=== PATIENT | female | born 1980 | race American Indian/Alaskan Native ===

== ENCOUNTER 2017-10-09 06:12 | Day surgery (SDC) | payer OTHER ==
[2017-10-02 09:37] VITALS: BMI 26.2
[2017-10-09 07:10] VITALS: O2SAT 100
[2017-10-09] MEDS ORDERED: Bupivacaine HCl 0.5% PF (10 ml) Inj ONE (07:30)
[2017-10-09] MEDS ORDERED: Lidocaine 1% Inj (20ml) ONE (07:30)
[2017-10-09] MEDS ORDERED: Lidocaine Hydrochloride 5 ML INJ ONE (07:51)
[2017-10-09] MEDS ORDERED: Propofol 10 mg/ml Inj (20 ML) ONE (07:51)
[2017-10-09] MEDS ORDERED: Midazolam 2 MG/2 ML VIAL ONE (07:51)
[2017-10-09] MEDS ORDERED: Clindamycin 600mg/50ml NS 600 MG/50 ML BAG IVPB ONE (08:00)
--- NOTE | 2017-10-09 08:55 | PCM.SURG1 ---
Surgeon's Initial Post Op Note - Surgeon's Notes Surgeon: Dr. Harrington DPM Limnology Teacher: Dr. Trupti Triana DPAndrea PGY-1 Type of Anesthesia: IV Sedation, Local Anesthesia Administered By: Dr. Rubens NARVAEZ Pre-Operative Diagnosis: Left foot 2nd digit hammer toe Operative Findings: See dictation. M: 4-0 Chromic gut, 3-0 nylon. I: 10 cc of 1:1 mixture of 1% lidocain plain:0.5% marcain plain Post-Operative Diagnosis: Same Operation Performed: Left foot 2nd digit arthroplasty Specimen/Specimens Removed: Left foot 2nd digit bone Estimated Blood Loss: EBL {In ML}: 5 Blood Products Given: N/A Drains Used: No Drains Date of Surgery/Procedure: 10/09/17 Time of Surgery/Procedure: 08:55
[2017-10-09] MEDS ORDERED: Lactated Ringer's 1,000 ML IV SCH (09:00)
--- NOTE | 2017-10-09 09:59 | RAD ---
PROCEDURE: Left Foot Radiographs. HISTORY: s/p left foot 2nd digit surgery COMPARISON: None. FINDINGS: BONES: Status post osteotomy distal aspect 2nd proximal phalanx. Surgical pin traverses the 2nd digit. JOINTS: Normal. SOFT TISSUES: Normal. OTHER FINDINGS: None. IMPRESSION: Osteotomy distal aspect 2nd proximal phalanx.
[2017-10-09] MEDS ORDERED: Oxycodone/Acetaminophen 5/325 mg Tab PO PRN ×2 (10:49)
[2017-10-09 10:53] VITALS: RESP 16
[2017-10-09 12:55] VITALS: BP 101/65; PULSE 68; TEMP 97.6
== END 2017-10-09 12:36 | disposition home or self-care (01) ==
LOC: C.SDS 06:12
PROVIDERS: ATTEND Podiatrist Foot Surgery
DX: M20.42 Other hammer toe(s) (acquired), left foot (principal)
CPT/HCPCS: 28285; 73620; 88304; C1713; J1170; J2250; J2704; J3010

== ENCOUNTER 2017-12-01 09:45 | Day surgery (SDC) | payer OTHER ==
[2017-10-02 09:37] VITALS: BMI 26.2
[2017-12-01 11:05] VITALS: TEMP 98; O2SAT 100
[2017-12-01] MEDS ORDERED: Propofol 10 mg/ml Inj (20 ML) ONE (12:21)
--- NOTE | 2017-12-01 12:24 | CP.SDSHP ---
Same Day Surgery H & P - History Proposed Procedure: COLONSCOPY Pre-Op Diagnosis: SEE NOTES - Previous Medical/Surgical History Misc: Other Pain: 4.Moderate Pain - Allergies Allergies: Allergies SEASONAL Allergy (Uncoded 12/01/17 10:48) CONGESTION - Physical Exam General Appearance: N Vital Signs: Vital Signs 12/01/17 10:30 Temperature 98 F Pulse Rate 85 Respiratory 20 Rate Blood Pressure 104/71 O2 Sat by Pulse 100 Oximetry Mental Status: Alert & Oriented x3 Neuro: WNL Heart: WNL Lungs: WNL GI: Other - {Optional Preform as Required} Breast: WNL Abdomen: WNL Rectal: Other Integument: WNL : WNL Ortho: WNL ENT: WNL - Impression Pt. Evaluated Today:Candidate for Anesthesia & Procedure: Yes - Date & Time Time: 12:23 Short Stay Discharge - Short Stay Discharge Admitting Diagnosis/Reason for Visit: ENCOUNTER FOR SCREENING FOR MALIGNANT NEOPLASM OF Disposition: HOME/ ROUTINE
[2017-12-01] MEDS ORDERED: Belladonna-Phenobarbital PO STA (12:25)
[2017-12-01 13:58] VITALS: RESP 12
[2017-12-01 14:05] VITALS: BP 101/52; PULSE 78
== END 2017-12-01 13:45 | disposition home or self-care (01) ==
LOC: C.ENDO 09:45
PROVIDERS: ATTEND Specialist
DX: Z12.11 Encounter for screening for malignant neoplasm of colon (principal); K58.9 Irritable bowel syndrome, unspecified; K64.8 Other hemorrhoids
CPT/HCPCS: 45380; 84703; 88305; J2704; J3010

== ENCOUNTER 2018-03-11 17:05 | Emergency (ER) | payer OTHER ==
[2018-03-11 17:43] VITALS: BMI 27.4
[2018-03-11 19:10] VITALS: RESP 16; O2SAT 99
[2018-03-11] MEDS ORDERED: Lactated Ringer's 1,000 ML IV STA (19:50)
--- NOTE | 2018-03-11 19:50 | C.PDOC ---
History Of Present Illness Patient is a 37 y/o female who presents to the ED with complaints of headache, body aches, and mild chills since Thursday. Patient notes symptoms have progressively worsened. Admits to mild photophobia and to taking Motrin and Tylenol without relief. Denies any travel. No other physical complaints. Time Seen by Provider: 03/11/18 17:59 Chief Complaint (Nursing): Headache History Per: Patient History/Exam Limitations: no limitations Onset/Duration Of Symptoms: Days (Friday 03/09), Worse Since Current Symptoms Are (Timing): Still Present Severity: Moderate Pain Scale Rating Of: 4 Preceeding Symptoms: None Associated Symptoms: Photophobia (mild) Recent travel outside of the [place]: No Past Medical History Reviewed: Historical Data, Nursing Documentation, Vital Signs Vital Signs: Last Vital Signs Temp 99 F 03/11/18 21:18 Pulse 94 H 03/11/18 20:44 Resp 16 03/11/18 20:44 BP 108/59 L 03/11/18 20:44 Pulse Ox 99 03/11/18 20:44 - Medical History PMH: Anemia, Fractures (FOOT), Gall Bladder Disease Denies: Chronic Kidney Disease Surgical History: Cholecystectomy, Endoscopy - [facility] Procedures INJECT/INFUSE NEC (01/28/15) Family History: States: No Known Family Hx - Social History Hx Tobacco Use: No Hx Alcohol Use: Yes Hx Substance Use: No - Immunization History Hx Tetanus Toxoid Vaccination: No Hx Influenza Vaccination: No Hx Pneumococcal Vaccination: No Review Of Systems Constitutional: Positive for: Chills (mild). Negative for: Fever Eyes: Positive for: Other (mild photophobia) Musculoskeletal: Positive for: Other (generalized body aches) Neurological: Positive for: Headache Physical Exam - Physical Exam Appears: Non-toxic, No Acute Distress Skin: Warm, Dry Head: Normacephalic Eye(s): bilateral: Normal Inspection, Photophobia (mild) Oral Mucosa: Moist Neck: Trachea Midline, Supple Chest: Symmetrical Cardiovascular: Rhythm Regular Respiratory: No Rales, No Rhonchi, No Wheezing Gastrointestinal/Abdominal: Soft, No Tenderness Back: Normal Inspection Extremity: Normal ROM (x4) Extremity: Bilateral: Atraumatic Neurological/Psych: Oriented x3, Other (no focal deficits) Gait: Steady ED Course And Treatment - Laboratory Results Result Diagrams: 03/11/18 20:12 03/11/18 20:12 O2 Sat by Pulse Oximetry: 99 Pulse Ox Interpretation: Normal Progress Note: Blood work, Head CT, UCG urine, UA ordered. Tylenol, zofran, IV fluids administered. Reevaluation Time: 22:07 Reassessment Condition: Improved Disposition Counseled Patient/Family Regarding: Studies Performed, Diagnosis, Need For Followup, Rx Given - Disposition Referrals: Jaleesa Smalls MD [Staff Provider] - Disposition: HOME/ ROUTINE Disposition Time: 19:49 Condition: FAIR Additional Instructions: Please return if symptoms recur Prescriptions: Ondansetron ODT [Zofran ODT] 1 odt PO BID PRN #6 odt PRN Reason: Nausea/Vomiting Instructions: Migraine Headache (DC), Anemia Caused by Low Iron, Adult (DC), Chronic Sinusitis, Urinary Tract Infection, Adult (DC) Forms: [employer] (Pashto) - Clinical Impression Clinical Impression: Headache, Anemia, Chronic sinusitis, UTI (urinary tract infection) - Scribe Statement The provider has reviewed the documentation as recorded by the Scribe Renae Seo All medical record entries made by the Scribe were at my direction and personally dictated by me. I have reviewed the chart and agree that the record accurately reflects my personal performance of the history, physical exam, medical decision making, and the department course for this patient. I have also personally directed, reviewed, and agree with the discharge instructions and disposition.
[2018-03-11 20:16] LABS: BASO % 0.5 % (0.0-2.0); EOS % 0.1 % (0.0-4.0); HEMOGLOBIN 7.8 g/dL (11.0-16.0); LYMPH # 0.7 K/uL (1.0-4.3); LYMPH % 6.7 % (20.0-40.0); MEAN CELL VOLUME 70.4 fL (81.0-99.0); MEAN CORPUSCULAR HEMOGLOBIN 21.5 pg (27.0-31.0); MEAN CORPUSCULAR HGB CONC 30.6 g/dL (33.0-37.0); MEAN PLATELET VOLUME 8.6 fL (7.2-11.7); MONO # 0.8 K/uL (0.0-0.8); MONO % 7.9 % (0.0-10.0); NEUT % 84.8 % (50.0-75.0); PLATELET COUNT 348 K/uL (130-400); RBC 3.64 Mil/uL (3.80-5.20); RED CELL DISTRIBUTION WIDTH 15.6 % (11.5-14.5); WHITE BLOOD COUNT 10.7 K/uL (4.8-10.8)
[2018-03-11 20:20] LABS: HCG,QUALITATIVE URINE NEGATIVE (NEGATIVE)
[2018-03-11 20:22] LABS: SQUAMOUS EPITHIAL 6 /hpf (0-5); URINE BACTERIA MOD (<OCC); URINE BILIRUBIN NEGATIVE (NEGATIVE); URINE BLOOD 2+ (NEGATIVE); URINE CLARITY Hazy (Clear); URINE COLOR Yellow (YELLOW); URINE GLUCOSE (UA) NORMAL (Normal); URINE LEUKOCYTE ESTERASE 2+ Leu/uL (Negative); URINE PROTEIN NEGATIVE (NEGATIVE); URINE UROBILINOGEN NORMAL mg/dL (0.2-1.0)
[2018-03-11 20:34] LABS: ALB/GLOB RATIO 1.2 (1.0-2.1); ALT/SGPT 13 U/L (9-52); AST/SGOT 20 U/L (14-36); BLOOD UREA NITROGEN 7 mg/dL (7-17); CALCIUM 8.8 mg/dl (8.6-10.4); GFR AFRICAN-AMERICAN > 60; GFR NON-AFRICAN AMERICAN > 60
[2018-03-11 20:45] VITALS: BP 108/59; PULSE 94
[2018-03-11 20:48] LABS: VENOUS BLOOD GAS BASE EXCESS 0.8 mmol/L (0.0-2.0); VENOUS BLOOD GAS PCO2 39 mmHg (40-60); VENOUS BLOOD GAS PO2 36 mm/Hg (30-55); VENOUS BLOOD PH 7.42 (7.32-7.43)
[2018-03-11 20:48] LABS: BANDS 2 % (0-2); EOSINOPHIL 1 % (0-4); HYPOCHROMIC SLIGHT; LYMPHOCYTE 9 % (20-40); MICROCYTOSIS SLIGHT; MONOCYTE 3 % (0-10); NEUTROPHIL 85 % (50-75); OVALOCYTES SLIGHT; PLATELET ESTIMATE NORMAL (NORMAL); TOTAL CELLS COUNTED 100
[2018-03-11 20:49] LABS: LARGE PLATELETS PRESENT
--- NOTE | 2018-03-11 21:04 | CT ---
EXAM: CT Head Without Intravenous Contrast EXAM DATE/TIME: Exam ordered 03/11/2018 7:53 PM CLINICAL HISTORY: 37 years old, female; Condition or disease; Headache; Headache not specified TECHNIQUE: Axial computed tomography images of the head/brain without intravenous contrast. All CT scans at this facility use one or more dose reduction techniques, viz.: automated exposure control; ma/kV adjustment per patient size (including targeted exams where dose is matched to indication; i.e. head); or iterative reconstruction technique. COMPARISON: No relevant prior studies available. FINDINGS: Brain: Unremarkable. No hemorrhage. No significant white matter disease. No edema. Ventricles: Unremarkable. No ventriculomegaly. Bones/joints: Unremarkable. No acute fracture. Soft tissues: Unremarkable. Sinuses: Mucosal thickening is noted in the posterior left ethmoid air cell projecting into the sphenoid sinus. Mastoid air cells: Unremarkable as visualized. No mastoid effusion. IMPRESSION: 1. No acute findings. 2. Chronic ethmoid and sphenoid sinusitis.
[2018-03-11 21:18] VITALS: TEMP 99
[2018-03-11] MEDS ORDERED: Piperacillin/Tazobact 3.375 gm 100 ML IVPB STA (21:25)
[2018-03-11] MEDS ORDERED: Piperacill/Tazo 3.375gm in Dex 3.375 GM/50 ML BAG IVPB STA (21:55)
== END 2018-03-11 22:55 | disposition home or self-care (01) ==
LOC: C.ER 17:05
DX: N39.0 Urinary tract infection, site not specified (principal); D64.9 Anemia, unspecified; J32.2 Chronic ethmoidal sinusitis; J32.3 Chronic sphenoidal sinusitis; R51 Headache
CPT/HCPCS: 70450; 80053; 81001; 82803; 84703; 85025; 96365; 96375; 99285; J1885; J2543; J7120